=== PATIENT | male | born 1950 | race Caucasian/White ===

== ENCOUNTER → 2017-01-06 | Outpatient (CLI) | payer MEDICARE, OTHER ==
[~2017-01-06] MED LIST: ASPI1TAB69 PO; ATOR10TA15; FISH1000 PO; HYDR-3583 PO; OMEP20TA PO
[2017-01-06 12:39] LABS: AUTOMATED NEUTROPHIL # 3.5 TH/MM3 (1.8-7.7); BASOPHIL # 0.1 TH/MM3 (0-0.2); EOSINOPHIL # 0.2 TH/MM3 (0-0.4); HEMATOCRIT 49.2 % (39.0-51.0); HEMO FLAGS DIFF FINAL; LYMPH % 29.9 % (9.0-44.0); LYMPHOCYTE # 1.9 TH/MM3 (1.0-4.8); MEAN CELL VOLUME 89.5 FL (80.0-100.0); MEAN CORPUSCULAR HEMOGLOBIN 30.2 PG (27.0-34.0); MEAN CORPUSCULAR HGB CONC 33.8 % (32.0-36.0); MONO % 9.1 % (0.0-8.0); PLATELET COUNT 192 TH/MM3 (150-450); RED CELL DISTRIBUTION WIDTH 12.8 % (11.6-17.2); WHITE BLOOD COUNT 6.2 TH/MM3 (4.0-11.0)
[2017-01-06 12:46] LABS: APTT (PATIENT) 28.2 SEC (24.3-30.1); PROTHROMBIN TIME - PATIENT 10.7 SEC (9.8-11.6)
[2017-01-06 12:47] LABS: BLOOD, URINE NEG (NEG); COMMENT (UR) CULT NOT INDICATED; CULTURE IF INDICATED CULT NOT INDICATED; GLUCOSE,URINE NEG (NEG); KETONE, URINE NEG (NEG); MUCUS URINE FEW /lpf (OCC); NITRITE,URINE NEG (NEG); URINE COLOR YELLOW (YELLW/STRAW)
[2017-01-06 13:05] LABS: ANION GAP 7 MEQ/L (5-15); AST (GOT) 23 U/L (15-37); BICARBONATE 27.5 MEQ/L (21.0-32.0); BLOOD UREA NITROGEN 17 MG/DL (7-18); CHLORIDE 108 MEQ/L (98-107); GLOMERULAR FILTRATION RATE 78 ML/MIN (>89); GLUCOSE,FASTING 96 MG/DL (74-99); POTASSIUM 4.1 MEQ/L (3.5-5.1); SODIUM (NA) 142 MEQ/L (136-145)
[2017-01-06 13:08] LABS: ALKALINE PHOSPHATASE 87 U/L (45-117); ALT (GPT) 32 U/L (12-78); TOTAL BILIRUBIN ADULT 0.6 MG/DL (0.2-1.0)
--- NOTE | 2017-01-06 17:47 | RADRPT ---
EXAM DATE/TIME: 01/06/2017 13:18 [facility] COMPARISON: No previous studies available for comparison. INDICATIONS : Evaluate for pneumonia, pneumothorax or communicable disease. Pre op for diskectomy 01-11-17 MEDICAL HISTORY : None. SURGICAL HISTORY : None. ENCOUNTER: Initial ACUITY: 1 day PAIN SCORE: 0/10 LOCATION: Bilateral chest FINDINGS: PA and lateral views of the chest demonstrate a normal-sized cardiac silhouette. There is no effusion , consolidation, or pneumothorax. The bones and soft tissues demonstrate no acute abnormality. CONCLUSION: No acute cardiopulmonary abnormality is identified. Harry Arroyo MD on January 06, 2017 at 17:45 Board Certified Radiologist. This report was verified electronically.
--- NOTE | 2017-01-06 18:05 | RADRPT ---
EXAM DATE/TIME: 01/06/2017 13:18 [facility] COMPARISON: No previous studies available for comparison. INDICATIONS : Cervical spine range of motion. MEDICAL HISTORY : None. SURGICAL HISTORY : previous spine surgery 20 years ago. ENCOUNTER: Initial ACUITY: 1 day PAIN SCORE: Non-responsive. LOCATION: Bilateral neck FINDINGS: There is 3 mm retrolisthesis of C3 on C4 this patient with bony fusion from C4-C5. There is multileve l disc space narrowing and marginal osteophyte formation maximal at C6-C7. The odontoid is intact. Th ere is no widening of the atlantoaxial space. Small bilateral cervical ribs are present. Flexion-extension views demonstrate 2-3 mm of motion across the C3-C4 disc space with flexion and ext ension. Good range of motion is identified. Oblique views demonstrated the neural foramina to be inta ct bilaterally. CONCLUSION: 1. Postsurgical changes as above. 2. 2-3 mm of motion across the C3-C4 disc space with flexion and extension. Dipak Huang MD on January 06, 2017 at 18:02 Board Certified Radiologist. This report was verified electronically.
--- NOTE | 2017-01-07 20:10 | EKG ---
Date Performed: 01/06/2017 Time Performed: 12:25:52 PTAGE: 66 years EKG: Sinus rhythm INCOMPLETE RIGHT BUNDLE BRANCH BLOCK BORDERLINE ECG NO PREVIOUS TRACING DOCTOR: Gilmer Mir Interpretating Date/Time 01/07/2017 20:09:48
== END ==
LOC: CPRE 12:00
PROVIDERS: ATTEND Neurological Surgery
DX: M43.02 Spondylolysis, cervical region (principal); Z79.01 Long term (current) use of anticoagulants; R94.31 Abnormal electrocardiogram [ECG] [EKG]
CPT/HCPCS: 36415; 71020; 72052; 80053; 81001; 85025; 85610; 85730; 93005

== ENCOUNTER 2017-01-11 09:04 | Observation (INO) | payer MEDICARE, OTHER ==
[~2017-01-11] VITALS: Ht 188 cm; Wt 83.9 kg
[~2017-01-11 09:04] MED LIST changes: -HYDR-3583 PO; -OMEP20TA PO
[2017-01-11] MEDS ORDERED: METOPROLOL TARTRATE 25 MG TAB PO PRN (09:30)
[2017-01-11] MEDS ORDERED: INSULIN HUMAN REGULAR 1,000 UNITS/10 ML VIAL SQ PRN (09:30)
[2017-01-11 09:45] VITALS: BP 135/79; PULSE 72; RESP 20; TEMP 97.7; O2SAT 98
[2017-01-11] MEDS ORDERED: LACTATED RINGER'S 1000 ML IV SCH (10:00)
[2017-01-11] MEDS ORDERED: SODIUM CHLORID 0.9% 500 ML IV SCH (10:00)
[2017-01-11] MEDS ORDERED: ARTIFICIAL TEARS OPTH OINT 3.5 APPLIC/3.5 GM TUBO ONE (12:58)
[2017-01-11] MEDS ORDERED: MIDAZOLAM HCL 2 MG/2 ML VIAL ONE (12:59)
[2017-01-11] MEDS ORDERED: ACETAMINOPHEN 1000 MG/100 ML VIAL IV ONE (12:59)
[2017-01-11] MEDS ORDERED: fentaNYL CITRATE 250 MCG/5 ML AMP ONE (12:59)
[2017-01-11] MEDS ORDERED: VANCOMYCIN HCL 1000 MG VIAL OTHER ONE (14:14)
[2017-01-11] MEDS ORDERED: ceFAZolin INJ 1,000 MG VIAL IV ONE (14:19)
[2017-01-11] MEDS ORDERED: GENTAMICIN SULFATE 80 MG/2 ML VIAL IRRIGATION ONE (14:38)
[2017-01-11] MEDS ORDERED: GELFOAM SIZE 100 TOP ONE (14:38)
[2017-01-11] MEDS ORDERED: MICROFIBRILLAR COLLAGEN HEMOSTAT 70 X 35 MM BANDAGE TOPICAL ONE (14:38)
[2017-01-11] MEDS ORDERED: THROMBIN (TOPICAL) 5,000 UNIT VIAL TOPICAL ONE (14:38)
[2017-01-11] MEDS ORDERED: ePHEDrine/NS 25 MG/5 ML SYR IV ONE (15:03)
[2017-01-11] MEDS ORDERED: PHENYLEPH/NS 1000 MCG/10 ML SYR IV ONE (15:03)
[2017-01-11] MEDS ORDERED: PROPOFOL 200 MG/20 ML AMP IV ONE (15:03)
[2017-01-11] MEDS ORDERED: ONDANSETRON HCL 4 MG/2 ML VIAL IV PUSH ONE (15:03)
[2017-01-11] MEDS ORDERED: NEOSTIGMINE 3 MG/3 ML SYR IV ONE (15:03)
[2017-01-11] MEDS ORDERED: LACTATED RINGER'S 1000 ML INJ 1,000 ML IV ONE (15:03)
[2017-01-11] MEDS ORDERED: BISACODYL 10 MG SUPP PR PRN (16:15)
[2017-01-11] MEDS ORDERED: SODIUM CHLORIDE 0.9% FLUSH 5 ML FLUSH IVF PRN (16:15)
[2017-01-11] MEDS ORDERED: ACETAMINOPHEN/HYDROcodone 325 MG/10 MG TAB PO PRN ×2 (16:15)
[2017-01-11] MEDS ORDERED: MENTHOL LOZENGE SUCK-ON PRN (16:15)
[2017-01-11] MEDS ORDERED: ONDANSETRON HCL 4 MG/2 ML VIAL IV PRN (16:15)
[2017-01-11] MEDS ORDERED: MORPHINE SULFATE 4 MG/ML INJ IV PUSH PRN ×2 (16:15)
[2017-01-11] MEDS ORDERED: ACETAMINOPHEN 325 MG TAB PO PRN (16:15)
[2017-01-11] MEDS ORDERED: DO NOT ADM ANY ANTICOAGULANT DRUGS XX PRN (16:20)
--- NOTE | 2017-01-11 16:24 | PD.OP ---
Operative Report Date of Surgery: Jan 11, 2017 Preoperative Diagnosis: Cervical spondylosis Postoperative Diagnosis: Cervical spondylosis Procedure: c3-4 cervical discectomy, interbody arthodhesis using PEEK cage filled with autologous bone graft, Simplicity plate and screws. Anesthesia: general Surgeon: Pablo Reyes Outdoor Studies Professor(s): Karen Motley Operation and Findings: INDICATIONS FOR THE PROCEDURE Mr Rock is a 66 year-old female who presented with intractable dysphagia, neck pain and clinical evidence of upper extremity C4 radiculopathy and mass effect on the anterior spinal cord. She has failed maximum nonsurgical management including multiple modalities of conservative treatment as well as pain management interventions by an interventional pain specialist. A surgical decompression and arthrodhesis were indicated. The [id number] details of the procedure, indications, alternatives, risks and potential complications were fully discussed with the patient. The patient fully understood. All The questions were answered. No guarantees were given. The patient voiced requesting the procedure and provided informed consents. The patient was offered the alternative of delaying the procedure and continuing with nonsurgical management. DETAILS OF THE SURGICAL PROCEDURE After the induction of general anesthesia, endotracheal intubation was performed. A Calderón catheter, bilateral ONEAL hose, and sequential compression devices were placed and kept throughout the procedure. Placement of electrodes for neurophysiological monitoring of the somatosensorial evoked potentials. motor evoked potentials, and EMG as well as laryngeal nerve monitoring was achieved. The patient was positioned supine on a Jerad table with the head over a gel doughnut. All pressure points were carefully padded with eggcrate mattress. The eyes were tapped shut after ointment was applied by the anesthesiologist to prevent corneal abrasion. A Carrillo hugger was placed over the exposed lower body to maintain control of the core body temperature. The electrophysiological team placed the needles and electrodes in their proper location and baseline SSEP's and motor evoked potentials were registered. The anterior cervical region was prepped and draped in the usual sterile fashion. A localizing x-ray was performed with a C-arm. The surgical procedure was performed in several steps as follow: SURGICAL APPROACH A skin incision was made along the superior cervical crease with a #10 blade. The dissection was carried out through the platysma exposing the sternocleidomastoid muscle. The cervical spine was approached following the fascial layers of the neck just medial to the anterior border of the sternocleidomastoid and carotid sheath by a combination of sharp and dull dissection. The tissues were severely abnormal and scarred, related to the previous radiation therapy to the neck. The omohyoid muscle was identified and carefully dissected laterally and the deep cervical fascia was carefully opened. The longus colli muscles were retracted to each side of the midline. An anterior osteophytic spur was removed. A marker was placed at the disc space C3-4 and a cross-table lateral x-ray performed with a C-arm. SURGICAL DECOMPRESSION In order to decompress the anterior surface of the spinal cord it was necessary to preform a microsurgical resection of the disk at C3-4. At this point in the procedure the operating microscope was draped in the usual sterile fashion and brought to the field. The rest of the surgical procedure was performed using microdissection technique with the exception of the closure. Under the operative microscopic, a self-retaining retractor was placed underneath the longus colli muscle. The annulus was incised with a #15 blade and a microdiscectomy was then carefully carried out using angled curets and pituitary forceps. There was a osteophitic/disk complex, which was producing severe mass effect and compression of the spinal cord. The posterior longitudinal ligament was then elevated with an angled curet and incised with a 15 bladed knife. A careful resection of the posterior longitudinal ligament was carried out using a thin footplate 2 mm Kerrison.A nerve hook was used to assess the epidural space behind the vertebral bodies C3 and C4 in search for residual disk fragments. The margins of the posterior endplates at C3 and C4 were carefully drilled and undercut with a TPS drill under high magnification. The decompression was then carried out laterally, and a bilateral foraminotomy was performed with a 2mm thin foot Kerrison. Then the vertebral bodies above and below the disk space were undercut using a 2 mm thin foot Kerrison. The epidural space was the systematically assessed with a nerve hook in search for disk fragments. An excellent decompression was achieved in both, the dural sac and bilateral exiting nerve roots. The incision was then irrigated with a large amount of antibiotic solution INTERBODY ARTHRODHESIS In order to avoid collapse of the disk space which would result in bilateral foraminal stenosis, and to increase the chances of a successful fusion, it was necessary to place an interbody cage filled with autologous bone. At this point of the procedure, the superior and inferior endplates were then evenly decorticated with a TPS drill. The use of a drill in combination with a curette allowed me to systematically remove the cartilaginous endplates, exposing healthy bone for the interbody arthrodesis. forteen millimeters distraction pins were then placed at the vertebral bodies adjacent to the disk space, and gentle distraction was applied. The size of the interbody cage was then assessed using different size spacers, and a rasp was used to ensure no residual cartilage. A PEEK cage of the appropriate size was selected, and the interbody arthrodesis was then preformed by carefully impacting a PEEK cage filled with autologous bone graft to the disc space C3-4. An excellent position of the cage was achieved. This was was confirmed anatomically by feeling the space posterior to the implant and distance to the anterior surface of the dural sac. Radiological confirmation of the position was performed with a cross lateral xray performed with the C-arm. INTERNAL INSTRUMENTAL FIXATION Once that the interbody device was in an appropriate position, it was necessary to stabilize the spine with anterior instrumentation. Anterior instrumentation has demonstrated to increase the rate of fusion, accelerate the patient's recovery, and decrease the rate of failed interbody grafts. At this point of the procedure, the distance between the vertebral bodies was carefully measures , and a Simplicity plate was brought to the field and presented in front of the vertebral bodies C3 C4. Knit Tubing Dyer holes were then drilled using the TPS drill, and the plate was then secured to the spine using self-drilling, self-tapping screws. Initially, the inferior right screw was inserted, followed by placement of the contralateral upper screw. The remanding screws were sequentially placed in a contra-lateral fashion. A proper purchase was achieved with all screws and the position of the cage, plate and screws, and alignment of the spine was assessed anatomically by direct visualization, and radiologically by performing a cross lateral xray of the cervical spine with the C-arm. CLOSURE The incision was irrigated with several liters of antibiotic solution. Hemostasis was achieved with a bipolar. The screws were locked to prevent backing out. A 7 mm Jerad-Danielson drain was left in the prevertebral space and externalized through a separate stab incision. The incision was then closed in layers. 3-0 Vicryl with interrupted sutures was used to close the platysma and subcutaneous tissue. The skin was closed with 4-0 running subcuticular Vicryl and Dermabond was applied. The drain was secured with a 3-0 nylon. At the end of the procedure the sponge, needle and instrument counts were all correct. The estimated blood loss was less than 60 cc. No blood transfusion was given. No intraoperative complications occurred. The patient received prophylactic antibiotics. The patient was then extubated and transferred to the recovery room in stable condition. Pablo Reyes MD Jan 11, 2017 16:24
[2017-01-11] MEDS ORDERED: NS + KCL 20 MEQ INJ 1,000 ML IV SCH (17:00)
[2017-01-11] MEDS: DEXAMETHASONE SOD PHOS 4 MG/ML VIAL IV SCH (18:16)
--- NOTE | 2017-01-11 19:51 | RADRPT ---
EXAM DATE/TIME: 01/11/2017 13:37 [facility] COMPARISON: No previous studies available for comparison. INDICATIONS : Fusion C3,C4 with screw and plate placement. MEDICAL HISTORY : None. SURGICAL HISTORY : Fusion, cervical. Previous spine surgery 20 years ago. ENCOUNTER: Initial ACUITY: 1 day PAIN SCORE: Non-responsive. LOCATION: Cervical spine. FINDINGS: Status post anterior cervical fusion at C3-4. There is good alignment of the cervical spine and fusio n. The hardware is grossly intact. CONCLUSION: Good position and alignment on this postoperative study. Kenneth Morillo MD on January 11, 2017 at 19:49 Board Certified Radiologist. This report was verified electronically.
[2017-01-11] MEDS: SODIUM CHLORIDE 0.9% FLUSH 5 ML FLUSH IVF SCH (21:00)
[2017-01-11] MEDS: ceFAZolin 2 GM PREMIX 50 ML IV SCH (21:30)
[2017-01-11] MEDS: DOCUSATE SODIUM 100 MG CAP PO SCH (21:30)
[2017-01-11] MEDS: CYCLOBENZAPRINE HCL 10 MG TAB PO PRN (21:30)
[2017-01-11 21:31] VITALS: BP 132/75; PULSE 104; RESP 18; TEMP 95.5; O2SAT 94
[2017-01-12] VITALS (7 sets, daily range): BP systolic 119–132; BP diastolic 64–76; PULSE 70–100; RESP 18–20; TEMP 95.2–97.9; O2SAT 93–98
[2017-01-12] MEDS: DEXAMETHASONE SOD PHOS 4 MG/ML VIAL IV SCH ×3 (00:14→13:51)
[2017-01-12] MEDS: ceFAZolin 2 GM PREMIX 50 ML IV SCH ×2 (06:09→13:40)
[2017-01-12] MEDS ORDERED: PANTOPRAZOLE SOD 40 MG DELAYED RELEASE TAB PO SCH (09:00)
[2017-01-12] MEDS: DOCUSATE SODIUM 100 MG CAP PO SCH (09:21)
[2017-01-12] MEDS: SODIUM CHLORIDE 0.9% FLUSH 5 ML FLUSH IVF SCH (09:21)
[2017-01-12] MEDS: CYCLOBENZAPRINE HCL 10 MG TAB PO PRN (09:57)
[2017-01-12] MEDS ORDERED: HYDR-3583 PO (13:14)
--- NOTE | 2017-01-12 15:26 | HHI.DCPOC ---
Discharge Care Plan Diagnosis: (1) Status post cervical arthrodesis Goals to Promote Your Health * To prevent worsening of your condition and complications * To maintain your health at the optimal level Directions to Meet Your Goals Take your medications as prescribed Follow your dietary instruction Follow activity as directed Keep your appointments as scheduled Take your immunizations and boosters as scheduled If your symptoms worsen call your PCP, if no PCP go to Urgent Care Center or Emergency Room Smoking is Dangerous to Your Health. Avoid second hand smoke Call the 24-hour hour crisis hotline for domestic abuse at Prabha Liu Jan 12, 2017 15:26
--- NOTE | 2017-01-12 15:30 | HHI.DS ---
Discharge Summary Admission Date Jan 11, 2017 at 16:06 Discharge Date: Jan 12, 2017 Admitting Diagnosis s/p ACDF (1) Status post cervical arthrodesis ICD Code: Z98.1 Brief History Mr Rock is a 66 year-old female who presented with intractable dysphagia, neck pain and clinical evidence of upper extremity C4 radiculopathy and mass effect on the anterior spinal cord. He has failed maximum nonsurgical management including multiple modalities of conservative treatment as well as pain management interventions by an interventional pain specialist. A surgical decompression and arthrodesis were indicated. Imaging Last Impressions Cervical Spine X-Ray 01/11/17 0000 Signed Impressions: Service Date/Time: Wednesday, January 11, 2017 13:37 - CONCLUSION: Good position and alignment on this postoperative study. Kenneth Morillo MD PE at Discharge Mr. Rock is alert, in no apparent distress. Speech is fluent. Mentation intact. His incision with dry dressing in place. Cranial nerve examination: pupils to be equal, round and reactive to light. Extra-ocular movements are intact. Facial motor are normal and symmetrical. Gross hearing appears intact. Neck is immobilized by a [place] J collar. Muscle strength is 5/5 to both deltoid, biceps, triceps, and chief of internal medicine in the upper extremities. 5/5 to both iliopsoas, quadriceps, hamstrings, plantarflexion, dorsiflexion, and EHL in the lower extremities. Sensory examination is intact to light touch in both the upper and lower extremities. Hospital Course Mr. Rock underwent a C3-4 cervical discectomy, interbody arthodhesis using PEEK cage filled with autologous bone graft, simplicity plate and screws on Jan 11, 2017. His surgery went well without complications. His symptoms remained stable. He will be discharged home in stable conditions. Activity restrictions , wound care, and signs and symptoms to watch for were fully discussed with the patient. Pt Condition on Discharge: Stable Discharge Disposition: Discharge Home Discharge Instructions DIET: Follow Instructions for: Soft Diet ACTIVITIES You can perform: Weight Bearing As Darci ADDITIONAL Activity Instructio: Avoid strenuous activities, heavy lifting, overhead activities, repetitive bending, twisting, pushing, pulling or any activities which might result in stress over the spine. Avoid situtation that will put at risk for falls. Use assistive device as needed for walking. Wear cervical collar at all times, may remove only with meals. New Medications: Hydrocodone-Acetaminophen (Hydrocodone-Acetaminophen) 10-325 mg Tab 1 TAB PO Q8HR PRN PAIN SCALE 1 TO 10 #90 Ref 0 TAB Continued Medications: Aspirin (Aspirin) 81 Mg Tabdr 81 MG PO DAILY TAB Atorvastatin (Atorvastatin) 10 Mg Tab #90 [place]-3 Fatty Acids (Fish Oil) 1,000 Mg Cap 3000 MG PO DAILY Prabha Liu Jan 12, 2017 15:30
[2017-01-13] MEDS ORDERED: OMEP20TA PO (13:11)
== END 2017-01-12 18:41 | disposition home or self-care (01) ==
LOC: HSDC 09:04 → EDSTATUS 12:00 → N05A 16:06
PROVIDERS: ADMIT Neurological Surgery; ATTEND Neurological Surgery
DX: M47.812 Spondylosis without myelopathy or radiculopathy, cervical region (principal); M54.12 Radiculopathy, cervical region
CPT/HCPCS: 00670; 20936; 22551; 22853; 72040; 76000; 94150; 97162; C1713; G0378; G8987; G8988; J0131; J0690; J1100; J1580; J2250; J2370; J2405; J2710; J3010; J3370; J3480; J7120; L0150; L0172